=== PATIENT | female | born 1965 | race Caucasian/White ===

== ENCOUNTER → 2017-01-07 | Outpatient (CLI) | payer OTHER | LOC: FIMAGING 10:05 | PROVIDERS: ATTEND Internal Medicine Hematology & Oncology | DX: Z12.31 Encounter for screening mammogram for malignant neoplasm of breast (principal); Z15.01 Genetic susceptibility to malignant neoplasm of breast; Z80.3 Family history of malignant neoplasm of breast | CPT/HCPCS: G0202 ==

== ENCOUNTER 2017-01-18 10:51 | Observation (INO) | payer OTHER ==
[2017-01-18] MEDS ORDERED: GENTAMICIN SULFATE 80 MG/2 ML VIAL ONE (11:47)
[2017-01-18] MEDS ORDERED: BUPIVACAINE 0.25% 30 ML SDV ONE (11:47)
[2017-01-18] MEDS ORDERED: ceFAZolin 1 GM/5 ML SYR ONE (11:48)
[2017-01-18] MEDS ORDERED: BACITRACIN 50,000 UNITS/10 ML SYR IRR ONE (11:48)
[2017-01-18] MEDS ORDERED: fentaNYL 100 MCG/2 ML INJ ONE ×2 (13:16→16:55)
[2017-01-18] MEDS ORDERED: MIDAZOLAM 2 MG/2 ML VIAL ONE (13:27)
[2017-01-18] MEDS ORDERED: HYDROmorphONE/DILAUDID 2 MG/ML INJ ONE (14:22)
[2017-01-18] MEDS ORDERED: ONDANSETRON 4 MG/2 ML VIAL IVP PRN (14:36)
[2017-01-18] MEDS ORDERED: HYDROmorphONE/DILAUDID 1 MG/ML SYR IVP PRN (14:36)
[2017-01-18] MEDS ORDERED: TEMAZEPAM 15 MG CAP PO PRN (14:36)
[2017-01-18] MEDS ORDERED: LR 1,000 ML IV SCH (15:00)
[2017-01-18] MEDS ORDERED: DEXAMETHASONE 4 MG/ML VIAL ONE ×2 (16:22→16:23)
[2017-01-18] MEDS ORDERED: ONDANSETRON 4 MG/2 ML VIAL ONE ×2 (16:23→17:15)
[2017-01-18] MEDS ORDERED: ROCURONIUM 50 MG/5 ML VIAL ONE ×2 (16:24)
[2017-01-18] MEDS ORDERED: SUGAMMADEX SODIUM 200 MG/2 ML VIAL IVP ONE (16:25)
[2017-01-18] MEDS ORDERED: HYDROmorphONE/DILAUDID 1 MG/ML SYR ONE ×2 (17:19→17:57)
[2017-01-18] MEDS: KETOROLAC 15 MG/1 ML SDV IVP SCH ×2 (18:45→23:58)
[2017-01-18 21:13] VITALS: RESP 16
[2017-01-18] MEDS: PROMETHAZINE HCL 25 MG/ML INJ IVP PRN (21:31)
[2017-01-18] MEDS: ceFAZolin 2 GM/DEXTROSE 100 ML IV SCH (21:33)
[2017-01-18] MEDS: HYDROCODONE/APAP 5/325 TAB PO PRN (23:51)
--- NOTE | 2017-01-19 02:52 | GOP ---
[f rep st] OPERATIVE REPORT DATE OF OPERATION: 01/18/2017 SURGEON: Lance Rabago MD PLASTIC SURGEON: Azael Pantoja MD. FOCUSING MACHINE OPERATOR: Kaiser Jaramillo CST. ANESTHESIA: General. 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 POSTOPERATIVE DIAGNOSIS: Genetic susceptibility to breast cancer (PALB2 mutation). PROCEDURE PERFORMED: Bilateral simple mastectomy with immediate tissue program director/air personality reconstruction. INDICATIONS: 51-year-old healthy female with a strong family history for breast carcinoma and PALB2 mutation. She has normal preoperative screening imaging. She has opted to undergo bilateral prophylactic mastectomies at this time. Risks and benefits were explained, including bleeding, infection, skin flap necrosis, potential for future cancer formation. All questions were answered. She desires to proceed. A commercial lines account assistant is standard and necessary and customary for the safe performance of this procedure. DESCRIPTION OF PROCEDURE: After general anesthesia was induced, bilateral breasts were elliptically incised, incorporating the nipple-areolar complexes. Using electrocautery, skin flaps were created to the level of the clavicle, sternum, inframammary fold as well as latissimus dorsi muscle. The breast envelopes were peeled from medial to lateral, incorporating the pectoralis major fascia. Specimens were taken high up into the axillary tail of [facility]. Satisfactory hemostasis was assured throughout bilateral breast cavities. Skin flaps all appeared nicely pink and viable. Care of the case was turned to Dr. Pantoja for tissue program director/air personality placement and wound closure. /[id number]/MODL MTDD
[2017-01-19] MEDS: ceFAZolin 2 GM/DEXTROSE 100 ML IV SCH (06:17)
[2017-01-19] MEDS: KETOROLAC 15 MG/1 ML SDV IVP SCH ×2 (06:17→11:30)
[2017-01-19] MEDS: PROMETHAZINE HCL 25 MG/ML INJ IVP PRN (06:48)
--- NOTE | 2017-01-19 07:37 | SOAPPROG ---
SOAP Progress Note Assessment/Plan: Assessment:no overnight issues. nausea improved. pain controlled. avss. flaps pink. malu thin sang. pod#1 s/p bilat mast. doing well. home today. Plan: 01/19/17 07:35 Objective: Vital Signs Temp Pulse Resp BP Pulse Ox 36.6 C 75 16 106/63 95 01/19/17 04:49 01/19/17 04:49 01/19/17 04:49 01/19/17 04:49 01/19/17 04:49 01/18/17 01/19/17 01/20/17 05:59 05:59 05:59 Intake Total 1600 Output Total 550 75 Balance 1050 -75 ICD10 Worksheet Patient Problems: Problems Problem Status Onset Genetic predisposition to breast cancer Acute - ICD10 Problem Qualifiers (1) Genetic predisposition to breast cancer
[2017-01-19 09:08] VITALS: BP 100/54; PULSE 94; TEMP 98.2; O2SAT 92
[2017-01-19] MEDS: HYDROCODONE/APAP 5/325 TAB PO PRN (11:26)
--- NOTE | 2017-01-25 11:47 | GOP ---
[f rep st] OPERATIVE REPORT DATE OF OPERATION: 01/18/2017 SURGEON: Azael Pantoja Jr., MD ROOFER VINYL COATING: Kaiser Jaramillo SA, by surgeon request (skilled surgical technology instructor was necessary due to t he technical complexity of the case and the desire to minimize patient anesthesia time). ANESTHESIA: The patient had a general inhalational anesthetic. PREOPERATIVE DIAGNOSIS: Breast cancer. POSTOPERATIVE DIAGNOSIS: Breast cancer. PROCEDURE PERFORMED: Bilateral breast reconstruction utilizing tissue expanders and human dermal al lograft. FINDINGS: ESTIMATED BLOOD LOSS: During reconstruction was 10 cc. INDICATIONS: The patient is a 51-year-old white female referred from Dr. Bennie Rabago for consideration for reconstruction after a planned bilateral mastectomy. After discussing various reconstructive o ptions, we elected on a staged approach utilizing tissue expanders and implants[facility] with initial tissue golf technician placement. DESCRIPTION OF PROCEDURE: After the risks and benefits of the procedure were explained to the patie nt, highlighting bleeding, infection, tissue golf technician malposition, tissue golf technician puncture, need fo r removal of tissue golf technician prematurely, damage to vessels or nerves, partial or complete skin necr osis and need for revisional procedures, formal operative consent was obtained. She was taken to [facility] operating room by Dr. Rabago where uncomplicated bilateral mastectomies were performed. Reconstructi on began by re-draping the patient with fresh towels, new instrumentation. Electrocautery and sucti on were employed. The procedure began by obtaining meticulous hemostasis in both pockets and rinsin g multiple times with normal saline. A pocket was then developed for the tissue expanders beneath t he pectoralis major muscle and serratus anterior muscle. This was done by releasing the inferior, m edial origin of the muscle of the pectoralis major muscle and creating a pocket under direct vision using a fiberoptic headlight and an electrocautery unit. Symmetrical dissection was performed to al low placement of an 800 cc tissue golf technician. Tissue expanders were thoroughly tested, evacuated of a ir and filled with 300 cc of injectable saline. They were then rinsed in triple antibiotic saline, pockets were rinsed in triple antibiotic saline, and the tissue expanders were then gently introduce d into the correct anatomic position and sutured down to the chest wall using 2-0 PDS suture. An Al loDerm medium contour perforated acellular dermis graft was triple rinsed in normal saline, soaked i n triple antibiotic saline and then used to reconstruct the inferior poles of both breasts providing total AlloDerm and muscle coverage over the tissue expanders. The pockets were then irrigated agai n with triple antibiotic saline. Round 15 JOSE A drains were placed. Skin edges were inspected and fel t to have good vascularity. The mastectomy incisions were then closed using everting deep dermal 3- 0 Monocryl suture and future everted using surgical izabella. She had silver-impregnated dressings p laced over the mastectomy incisions with a compressive bra. Drains were placed to bulb suction. Yennifer jaramillo was extubated in the operating room, taken to the recovery room, and awakened in a stable conditio n. TISSUE EXPANDERS: Allergan full height, 800 cc devices filled to 600 cc bilaterally. Al loDerm contour medium perforated human dermal allograft bilaterally. DRAINS: 2 JOSE A drains were placed. COMPLICATIONS: No complications. /[id number]/MODL
== END 2017-01-19 13:17 | disposition home or self-care (01) ==
LOC: F3E 10:51 → F1N 15:00
PROVIDERS: ADMIT Surgery; ATTEND Surgery
PROC: 0HTV0ZZ Resection of Bilateral Breast, Open Approach (ICD-10-PCS; principal; 2017-01-18 12:00)
PROC: 0HRV0JZ Replacement of Bilateral Breast with Synthetic Substitute, Open Approach (ICD-10-PCS; 2017-01-18 12:00)
DX: Z15.01 Genetic susceptibility to malignant neoplasm of breast (principal); Z80.3 Family history of malignant neoplasm of breast; I10 Essential (primary) hypertension; K90.0 Celiac disease; E28.2 Polycystic ovarian syndrome; Z80.7 Family history of other malignant neoplasms of lymphoid, hematopoietic and related tissues; Z91.040 Latex allergy status
CPT/HCPCS: 19303; 19340; G0378; J0690; J1100; J1170; J1885; J2250; J2405; J2550; J3010; Q4116